=== PATIENT | female | born 1950 | race Two or more races ===

== ENCOUNTER 2021-09-16 19:22 | Emergency (ER) | payer OTHER ==
[~2021-09-16] VITALS: Ht 165.1 cm; Wt 65.8 kg
[2021-09-16 19:45] VITALS: BP 142/78
== END 2021-09-16 19:51 | disposition left against medical advice (07) ==
LOC: EDBD 19:22 → ER 19:31
DX: R51.9 Headache, unspecified (principal); I10 Essential (primary) hypertension; Z53.21 Procedure and treatment not carried out due to patient leaving prior to being seen by health care provider